=== PATIENT | female | born 1980 | race Caucasian/White ===

== ENCOUNTER → 2019-09-20 13:06 | Outpatient (CLI) | payer BC, SELFPAY ==
--- NOTE | 2019-09-20 13:18 | XR_ITS ---
PROCEDURE: XR CHEST 2V CLINICAL HISTORY: DYSPNEA COMPARISON: CXR1 CHEST-PORTABLE from 01/07/2016 FINDINGS: The cardiomediastinal silhouette and pulmonary vascularity are within normal limits. The lungs are clear without infiltrates, suspicious nodules, or pleural effusions. No acute bony abnormalities. IMPRESSION: No acute findings. Dictated by: Tanmay Hauser MD 09/20/2019 13:58 Electronically signed by Tanmay Hauser MD in [place] 09/20/2019 13:58
== END ==
PROVIDERS: PCP Nurse Practitioner Family; Visit Provider Nurse Practitioner Family
DX: R42 Dizziness and giddiness (principal); R06.00 Dyspnea, unspecified
CPT/HCPCS: 71046

== ENCOUNTER → 2019-09-30 14:24 | Outpatient (CLI) | payer BC, SELFPAY ==
--- NOTE | 2019-09-30 14:33 | CT_ITS ---
PROCEDURE: CT HEAD/BRAIN WO CON CLINICAL INDICATION: DIZZINESS Dizziness, left-sided headache, sharp pains with dizziness COMPARISON: [facility] CT HEAD W/O CONTRAST from 01/07/2016 TECHNIQUE: Axial images obtained. All CT scans at the facility use one or more dose reduction, viz: automated exposure control, ma/kV adjustment per patient size (including targeted exams where dose is matched to indication, i.e. head), or iterative reconstruction technique. FINDINGS: No midline shift, mass effect, intracranial hemorrhage, hydrocephalus, or extra-axial fluid collection is evident. The calvarium has an unremarkable appearance. No mastoid effusion. No sinus air-fluid level. IMPRESSION: No acute intracranial finding Dictated by: Tanmay Hauser MD 10/01/2019 07:00 Electronically signed by Tanmay Hauser MD in [place] 10/01/2019 07:00
== END ==
PROVIDERS: PCP Nurse Practitioner Family; Visit Provider Nurse Practitioner Family
DX: R42 Dizziness and giddiness (principal)
CPT/HCPCS: 70450